=== PATIENT | male | born 1995 | race Caucasian/White ===

== ENCOUNTER 2017-03-18 09:55 | Emergency (ER) | payer BC ==
[2017-03-18 10:11] VITALS: RESP 16; TEMP 101.7; O2SAT 96
[2017-03-18] MEDS ORDERED: NS 1,000 ML IV ONE (10:32)
[2017-03-18] MEDS ORDERED: IBUPROFEN 600 MG TAB PO ONE (10:32)
[2017-03-18] MEDS ORDERED: ACETAMINOPHEN 325 MG TAB PO ONE (10:32)
--- NOTE | 2017-03-18 10:34 | EDPHY ---
General Narrative: CHIEF COMPLAINT: Flu-like symptoms HISTORY OF PRESENT ILLNESS: Patient complains of 2 days history of flu-like symptoms. This includes cough, runny nose, mild sore throat, malaise, body aches. No headache. No neck pain or stiffness. No chest pain. No abdominal urinary complaints. He was seen at urgent care on Sunday with negative strep and flu test. He has taken minimal ibuprofen with some improvement last night. No medications today. No other associated complaints or modifying factors. REVIEW OF SYSTEMS: Ten systems reviewed and are negative unless otherwise noted in the HPI PCP: None locally SPECIALISTS: None PAST MEDICAL HISTORY: None PAST SURGICAL HISTORY: None SOCIAL HISTORY: Nonsmoker. Occasional alcohol. No drug use. 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 Just moved from [place] 1 week ago FAMILY HISTORY: Noncontributory EXAMINATION General Appearance: Alert, no distress Head: normocephalic, atraumatic Eyes: Pupils equal and round, no conjunctival pallor or injection ENT, Mouth: Mucous membranes moist. Mild erythema. Uvula is midline. Airway is widely patent. Neck: Normal inspection, supple, non-tender. No meningeal signs. Respiratory: Lungs are clear to auscultation. No wheezing, rhonchi or crackles Cardiovascular: Regular rate and rhythm. No murmur Gastrointestinal: Abdomen is soft and nontender. No hepatosplenomegaly. No distention or tympany. Back: non-tender, no bony abnormalities Neurological: A&O, nonfocal, normal gait Skin: Warm and dry, no rash. No petechiae or purpura Extremities: Nontender, no pedal edema Psychiatric: Mood and affect normal DIFFERENTIAL DIAGNOSES: Including but not limited to influenza, infectious mononucleosis, strep, viral illness MDM: 10:30 a.m. Flu-like symptoms with mild tachycardia and mild fever at 101.2. Mild erythema of the pharynx. His airway is patent and his lungs are clear. I have ordered IV fluid, laboratory studies. He is in no acute distress. 11:50 a.m. Laboratory studies are all within normals. No leukocytosis. Negative flu test. Negative mono test. He has received IV fluid. He is tolerating intake by mouth. He is in no acute distress with stable vital signs. Suspect viral etiology. Treat symptomatically as discussed. Increase fluid intake recommend follow up with primary care physician. Recommend ED precautions as discussed. He is comfortable this plan and discharged in stable condition. SUPERVISION: Patient was independently examined, but I discussed the case with my secondary supervising physician Dr. Montanez - History Smoking Status: Never smoked - Objective Vital Signs: Initial Vital Signs Temperature (C) 101.7 F H 03/18/17 10:10 Heart Rate 87 03/18/17 10:10 Respiratory Rate 16 03/18/17 10:10 Blood Pressure 98/70 L 03/18/17 10:10 O2 Sat (%) 96 03/18/17 10:10 O2 Delivery Mode Room Air Allergies/Adverse Reactions: No Known Allergies Allergy (Unverified 03/18/17 10:10) Home Medications: Medication Instructions Recorded Acetaminophen/Codeine 300/30Mg 1 each PO Q6 PRN #7 tab 03/18/17 [Tylenol #3 (*)] Dexamethasone [Decadron 4 MG (*)] 8 mg PO DAILY #2 tab 03/18/17 Ibuprofen 600 mg PO Q8 PRN #15 tablet 03/18/17 Laboratory Results: Laboratory Results 03/18/17 10:40 03/18/17 10:40 03/18/17 03/18/17 03/18/17 10:40 10:40 10:40 WBC RBC Hgb Hct MCV MCH MCHC RDW Plt Count MPV Neut % (Auto) Lymph % (Auto) [place] % (Auto) Eos % (Auto) Baso % (Auto) Nucleat RBC Rel Count Absolute Neuts (auto) Absolute Lymphs (auto) Absolute Monos (auto) Absolute Eos (auto) Absolute Basos (auto) Absolute Nucleated RBC Immature Gran % Immature Gran # Sodium 143 mEq/L mEq/L (135-145) Potassium 4.3 mEq/L mEq/L (3.5-5.2) Chloride 105 mEq/L mEq/L (97-110) Carbon Dioxide 25 mEq/l mEq/l (22-31) Anion Gap 13 mEq/L mEq/L (8-16) BUN 11 mg/dL mg/dL (7-23) Creatinine 0.9 mg/dL mg/dL (0.7-1.3) Estimated GFR > 60 Glucose 108 mg/dL H mg/dL (70-100) Calcium 9.2 mg/dL mg/dL (8.5-10.4) Nasal Influenza A PCR NEGATIVE FOR FLU A (NEGATIVE) Nasal Influenza B PCR NEGATIVE FOR FLU B (NEGATIVE) Monoscreen NEGATIVE (NEGATIVE) 03/18/17 10:40 WBC 8.19 10^3/uL 10^3/uL (3.80-9.50) RBC 5.07 10^6/uL 10^6/uL (4.40-6.38) Hgb 15.5 g/dL g/dL (13.7-17.5) Hct 43.8 % % (40.0-51.0) MCV 86.4 fL fL (81.5-99.8) MCH 30.6 pg pg (27.9-34.1) MCHC 35.4 g/dL g/dL (32.4-36.7) RDW 12.9 % % (11.5-15.2) Plt Count 175 10^3/uL 10^3/uL (150-400) MPV 10.4 fL fL (8.7-11.7) Neut % (Auto) 70.0 % % (39.3-74.2) Lymph % (Auto) 11.2 % L % (15.0-45.0) [place] % (Auto) 17.6 % H % (4.5-13.0) Eos % (Auto) 0.5 % L % (0.6-7.6) Baso % (Auto) 0.5 % % (0.3-1.7) Nucleat RBC Rel Count 0.0 % % (0.0-0.2) Absolute Neuts (auto) 5.73 10^3/uL 10^3/uL (1.70-6.50) Absolute Lymphs (auto) 0.92 10^3/uL L 10^3/uL (1.00-3.00) Absolute Monos (auto) 1.44 10^3/uL H 10^3/uL (0.30-0.80) Absolute Eos (auto) 0.04 10^3/uL 10^3/uL (0.03-0.40) Absolute Basos (auto) 0.04 10^3/uL 10^3/uL (0.02-0.10) Absolute Nucleated RBC 0.00 10^3/uL 10^3/uL (0-0.01) Immature Gran % 0.2 % % (0.0-1.1) Immature Gran # 0.02 10^3/uL 10^3/uL (0.00-0.10) Sodium Potassium Chloride Carbon Dioxide Anion Gap BUN Creatinine Estimated GFR Glucose Calcium Nasal Influenza A PCR Nasal Influenza B PCR Monoscreen Medications Given: Discontinued Medications Acetaminophen (Tylenol) 650 mg PO EDNOW ONE Stop: 03/18/17 10:33 Last Admin: 03/18/17 10:48 Dose: 650 mg Dexamethasone (Decadron) 8 mg PO EDNOW ONE Stop: 03/18/17 11:32 Last Admin: 03/18/17 12:00 Dose: 8 mg Sodium Chloride (Ns) 1,000 mls @ 0 mls/hr IV EDNOW ONE; Wide Open PRN Reason: Protocol Stop: 03/18/17 10:33 Last Admin: 03/18/17 10:46 Dose: 1,000 mls Ibuprofen (Motrin) 600 mg PO EDNOW ONE Stop: 03/18/17 10:33 Last Admin: 03/18/17 10:47 Dose: 600 mg Departure - Departure Disposition: Home, Routine, Self-Care Clinical Impression: Flu-like symptoms Condition: Good Instructions: Influenza (ED), Viral Syndrome (ED) Additional Instructions: 1. Medications as prescribed as needed 2. ED precautions as discussed Referrals: Kay Dueñas MD [[facility] [place] Primary Care Provider] - As per Instructions Prescriptions: Acetaminophen/Codeine 300/30Mg [Tylenol #3 (*)] 1 each PO Q6 PRN #7 tab PRN Reason: Pain, Mild Dexamethasone [Decadron 4 MG (*)] 8 mg PO DAILY #2 tab Ibuprofen 600 mg PO Q8 PRN #15 tablet PRN Reason: Pain, Mild
[2017-03-18 10:52] LABS: PLATELET COUNT 175 10^3/uL (150-400)
[2017-03-18] MEDS ORDERED: DEXAMETHASONE 4 MG TAB PO ONE (11:31)
[2017-03-18 12:00] VITALS: BP 100/60; PULSE 70
== END 2017-03-18 12:15 | disposition home or self-care (01) ==
DX: J11.1 Influenza due to unidentified influenza virus with other respiratory manifestations (principal); E86.9 Volume depletion, unspecified

== ENCOUNTER → 2017-06-20 | Outpatient (CLI) | payer BC ==
[~2017-06-20] MED LIST: IOPAMIDOL (ISOVUE-370) 150 ML BTL IV ONE
== END ==
LOC: FIMAGING 16:05
PROVIDERS: ATTEND Physician Assistant
DX: R42 Dizziness and giddiness (principal); R94.39 Abnormal result of other cardiovascular function study
CPT/HCPCS: Q9967